=== PATIENT | female | born 1950 | race Caucasian/White ===

== ENCOUNTER 2018-04-19 17:24 | Emergency (ER) | payer OTHER ==
[2018-04-19 17:41] VITALS: BMI 35.1
--- NOTE | 2018-04-19 17:47 | PDOC ---
History of Present Illness - General Chief Complaint: Pain Stated Complaint: PAIN - History of Present Illness Initial Comments: The patient is a 68F w/ a history of HTN who presents for evaluation of sharp L thoracic pain s/p fall down 1/2 of a flight of stairs on Monday (4d ago). She states that she slipped while going up the stairs to her apartment. She then hit her left chest. She denies hitting her head and denies LOC. She states the pain is worse with movement, deep inspiration, and touch. She reports that she did not come to be evaluated earlier 2/2 not wanting to come to the hospital. She has been taking Tylenol for pain w/ some relief. She reports a history of breaking her ribs in the past and states this pain is the same as the pain she had at that time. Denies fevers/chills, recent illness, SHABAZZ, vision changes, chest pain, SOB, N/V/C /D, dysuria, hematuria, or changes in sensation 04/19/18 18:02 Past History - Past Medical History Allergies/Adverse Reactions: Allergies Allergy/AdvReac Type Severity Reaction Status Date / Time No Known Allergies Allergy Unverified 04/19/18 17:41 Home Medications: Ambulatory Orders Lisinopril [Prinivil] 10 mg PO DAILY 04/19/18 - Suicide/Smoking/Psychosocial Hx Smoking History: Never smoked Information on smoking cessation initiated: No Hx Alcohol Use: No Drug/Substance Use Hx: No Review of Systems - Review of Systems Able to Perform ROS?: Yes Comments:: GENERAL/CONSTITUTIONAL: No fever or chills. No weakness HEAD, EYES, EARS, NOSE AND THROAT: No change in vision. No ear pain or discharge. No sore throat CARDIOVASCULAR: No chest pain or shortness of breath RESPIRATORY: Denies cough, hemoptysis GASTROINTESTINAL: No nausea, vomiting, diarrhea or constipation GENITOURINARY: No dysuria, frequency, or change in urination MUSCULOSKELETAL: per HPI SKIN: No rash NEUROLOGIC: No headache, vertigo, loss of consciousness, or change in strength/ sensation ENDOCRINE: No increased thirst. No abnormal weight change HEMATOLOGIC/LYMPHATIC: No anemia, easy bleeding, or history of blood clots ALLERGIC/IMMUNOLOGIC: No hives or skin allergy 04/19/18 17:47 Is the patient limited Tamazight proficient: No *Physical Exam - Vital Signs Last Vital Signs Temp Pulse Resp BP Pulse Ox 98.5 F 93 H 20 149/75 100 04/19/18 17:29 04/19/18 17:29 04/19/18 17:29 04/19/18 17:29 04/19/18 17:29 - Physical Exam Comments: GENERAL: Awake, alert, and fully oriented, in no acute distress HEAD: No signs of trauma, normocephalic, atraumatic; bee on L face infra- orbitally EYES: PERRLA, EOMI, sclera anicteric, conjunctiva clear ENT: Hearing grossly normal, nares patent, oropharynx clear without exudates. Moist mucosa LUNGS: No distress, speaks full sentences, clear to auscultation bilaterally; Cessation of deep inspiration 2/2 pain HEART: Regular rate and rhythm, normal S1 and S2, no murmurs appreciated, peripheral pulses normal and equal bilaterally CHEST: L lateral thoracic TTP over approx rib 8-9 ABDOMEN: Soft, nontender, normoactive bowel sounds. No guarding, no rebound EXTREMITIES : Normal inspection, Normal range of motion, no edema. No clubbing or cyanosis NEUROLOGICAL: Cranial nerves II through XII grossly intact. Normal speech, normal gait, no focal sensorimotor deficits SKIN: Warm, Dry, no abrasions or wounds seen 04/19/18 17:47 Moderate Sedation - Procedure Monitoring Vital Signs: Procedure Monitoring Vital Signs Temperature 98.5 F 04/19/18 17:29 Pulse Rate 93 H 04/19/18 17:29 Respiratory Rate 20 04/19/18 17:29 Blood Pressure 149/75 04/19/18 17:29 O2 Sat by Pulse Oximetry (%) 100 04/19/18 17:29 Medical Decision Making - Medical Decision Making The patient is a 68F w/ a history of HTN who presents for evaluation of 4d of sharp, L thoracic pain s/p mechanical fall from standing ED Course Lidoderm, Ibuprofen, Flexeril CXR, L rib series IS 04/19/18 18:22 Patient pending imaging Plan for re-evaluation s/p imaging Likely D/C w/ PCP f/u and IS 04/19/18 18:[address] chest to further evaluate for underlying pathology given patient's exquisite TTP -CT Chest -CMP, CBC 04/19/18 19:02 I have transferred care of the patient to Dr. Browne and discussed the clinical presentation, work-up and ED course thus far. 04/19/18 19:05 *DC/Admit/Observation/Transfer Diagnosis at time of Disposition: Left-sided chest wall pain - Discharge Dispostion Condition at time of disposition: Stable Decision to Admit order: No - Referrals - Patient Instructions Printed Discharge Instructions: DI for Rib Fracture - Post Discharge Activity
[2018-04-19] MEDS ORDERED: LIDOCAINE 5% TOPICAL PATCH TP ONE (17:48)
[2018-04-19] MEDS ORDERED: LIDOCAINE 5% TOPICAL PATCH ONE (18:00)
[2018-04-19] MEDS ORDERED: CYCLOBENZAPRINE HCL 10 MG TABLET (FP) PO ONE (18:05)
[2018-04-19] MEDS ORDERED: IBUPROFEN 600 MG TABLET (FP) PO ONE ×2 (18:05→18:08)
[2018-04-19] MEDS ORDERED: CYCLOBENZAPRINE HCL 10 MG TABLET (FP) ONE (18:08)
--- NOTE | 2018-04-19 19:04 | PDOC ---
Attending Attestation - HPI HPI: 04/19/18 19:04 The patient is a 68 year old female with a past medical history of HTN here today for evaluation of left sided rib pain. The patient reports that she fell down the stairs on Monday and fell on her side about 4 days ago. She denies loss of consciousness and dizziness both before and after the fall. She reports that her pain is localized to left lateral chest, exacerbated by deep inspiration and palpation. Prior history of rib fx, but unclear which side. She reports taking tylenol with minimal relief. Patient denies headache, lightheadedness. Denies fever, chills. Denies nausea, vomiting, diarrhea, abdominal pain. Allergies: NKA PCP: none reported <Dusty Renner - Last Filed: 04/19/18 19:04> - Resident Resident Name: Power Sterling - ED Attending Attestation I have performed the following: I have examined & evaluated the patient, The case was reviewed & discussed with the resident, I agree w/resident's findings & plan - Physicial Exam PE: 04/19/18 19:33 NAD, well appearing, PERRL, EOMI, MMM, nl conjunctiva, anicteric; neck supple. + left lateral chest wall TTP, no crepitus, but exquisitely tender. lungs clear, RRR, abdomen soft nontender. FISHER x4, no focal neuro deficits. No peripheral edema. normal color for ethnicity, WWP. - Medical Decision Making 04/19/18 19:33 HPI as documented DDx ptx, hemothorax, rib fractures, chest/pulmonary contusion. intra thoracic injury vitals wnl, no hypoxia. analgesia with topical lidocaine/NSAID/flexeril - without much relief. CXR with possible left sided rib fx CT chest to better delineate and eval for distinctively for multiple rib fx, given significant pain and complications such as hemothorax/effusion. no ptx see on cxr. ordered for incentive jim and deep breathing exercises s/o pending reeval dispo per imaging. 04/19/18 19:35 <Kavitha Rodríguez - Last Filed: 04/19/18 19:36>
[2018-04-19 19:49] LABS: HEMATOCRIT 37.9 % (32.4-45.2); HEMOGLOBIN 13.2 GM/dL (10.7-15.3); MCH 29.6 pg (25.7-33.7); MCHC 34.8 g/dl (32.0-36.0); MEAN CELL VOLUME 84.8 fl (80-96); MEAN PLT VOLUME 9.9 fl (7.5-11.1); PLATELET COUNT 282 K/MM3 (134-434); RBC 4.47 M/mm3 (3.60-5.2); WHITE BLOOD COUNT 10.8 K/mm3 (4.0-10.0)
[2018-04-19 20:32] LABS: ALBUMIN 3.9 g/dl (3.4-5.0); ALK PHOS 86 U/L (45-117); ANION GAP 7 MMOL/L (8-16); BILIRUBIN,TOTAL 0.5 mg/dL (0.2-1); BLOOD UREA NITROGEN 10 mg/dL (7-18); CALCIUM 8.3 mg/dL (8.5-10.1); CHLORIDE 103 mmol/L (98-107); CO2 28 mmol/L (21-32); CREATININE 0.7 mg/dL (0.55-1.3); GLUCOSE,RANDOM 131 mg/dL (74-106); POTASSIUM 4.4 mmol/L (3.5-5.1); SGOT/AST 28 U/L (15-37); SGPT/ALT 33 U/L (13-61); SODIUM 138 mmol/L (136-145)
[2018-04-19] MEDS ORDERED: LIDOCAINE PATCH REMOVAL MC SCH (22:00)
--- NOTE | 2018-04-19 23:05 | PDOC ---
*Physical Exam - Vital Signs Last Vital Signs Temp Pulse Resp BP Pulse Ox 98.2 F 102 H 18 147/74 97 04/19/18 20:49 04/19/18 20:49 04/19/18 20:49 04/19/18 20:49 04/19/18 20:49 ED Treatment Course - LABORATORY CBC & Chemistry Diagram: 04/19/18 19:15 04/19/18 19:15 - ADDITIONAL ORDERS Additional order review: Laboratory Results 04/19/18 19:15 Sodium 138 Potassium 4.4 Chloride 103 Carbon Dioxide 28 Anion Gap 7 L BUN 10 Creatinine 0.7 Creat Clearance w eGFR > 60 Random Glucose 131 H Calcium 8.3 L Total Bilirubin 0.5 AST 28 ALT 33 Alkaline Phosphatase 86 Total Protein 7.0 Albumin 3.9 04/19/18 19:15 RBC 4.47 MCV 84.8 MCHC 34.8 RDW 13.0 MPV 9.9 - Medications Given in the ED: ED Medications Discontinued Medications Generic Name Dose Route Start Last Admin Trade Name Freq PRN Reason Stop Dose Admin Cyclobenzaprine HCl 10 mg 04/19/18 18:05 04/19/18 18:12 Flexeril - PO 04/19/18 18:06 10 mg ONCE ONE Administration Ibuprofen 600 mg 04/19/18 18:05 04/19/18 18:12 Motrin - PO 04/19/18 18:06 600 mg ONCE ONE Administration Lidocaine 1 patch 04/19/18 17:48 04/19/18 18:12 Lidoderm Patch - TP 04/19/18 17:49 1 patch ONCE ONE Administration Medical Decision Making - Medical Decision Making 04/20/18 06:28 Pt signed out to me by Dr. Sterling Pt is a 68yo F with PMH of htn presenting to ED with L thoracic pain s/p fall 1/ 2 flight of stairs 4 days ago. Pain is worse with movement, deep inspiration and touch. Tylenol helps with pain relief. Waiting for CT results. CT results negative for fracture. Pt should still use spirometer since pt has pain with inspiration. Pt can continue to take Tylenol as well as ibuprofen which was sent to the pharmacy. Pt can be safely dc home. *DC/Admit/Observation/Transfer Diagnosis at time of Disposition: Left-sided chest wall pain - Discharge Dispostion Disposition: HOME Condition at time of disposition: Good Decision to Admit order: No - Prescriptions Prescriptions: Ibuprofen 600 mg PO TID #15 tablet - Referrals - Patient Instructions Additional Instructions: You were seen here today for left sided pain. The CT scan does not show evidence of fracture. I highly recommend you use the spirometer. This will prevent any infection from happening in the lungs. Please use it a few times per day, the more the better. A prescription has been sent to your pharmacy for ibuprofen. Please take as directed. You can also take Tylenol if needed. Come back to the emergency room if your pain gets worse, you start to have cough , you have fever, you have chest pain or if any new concerning symptom develops. Thank you - Post Discharge Activity
[2018-04-19 23:48] VITALS: BP 122/65; PULSE 89; TEMP 98.5
--- NOTE | 2018-04-20 10:16 | EKG ---
Test Reason : Blood Pressure : / mmHG Vent. Rate : 091 BPM Atrial Rate : 091 BPM P-R Int : 138 ms QRS Dur : 094 ms QT Int : 358 ms P-R-T Axes : 045 013 053 degrees QTc Int : 440 ms NORMAL SINUS RHYTHM POSSIBLE LEFT ATRIAL ENLARGEMENT BORDERLINE ECG NO PREVIOUS ECGS AVAILABLE Confirmed by STEPH MERRILL MD ([id number]) on 04/20/2018 10:16:08 AM Referred By: Confirmed By:STEPH MERRILL MD
== END 2018-04-19 23:48 | disposition home or self-care (01) ==
LOC: JER 17:24
DX: R07.89 Other chest pain (principal); I10 Essential (primary) hypertension; W10.9XXA Fall (on) (from) unspecified stairs and steps, initial encounter; Y93.89 Activity, other specified; Y92.008 Other place in unspecified non-institutional (private) residence as the place of occurrence of the external cause
CPT/HCPCS: 36415; 71046-TC-FY; 71101-TC-LT-FY; 71260-TC; 80053; 85027; 93005; 93010; 99282-25

== ENCOUNTER 2022-03-30 17:40 | Emergency (ER) | payer OTHER ==
[2022-03-30 17:52] VITALS: BMI 35.1
[2022-03-30] MEDS ORDERED: morphine CARPU-JECT 4 MG/1 ML DISP.SYRIN IVPUSH ONE (18:31)
[2022-03-30] MEDS ORDERED: morphine SULFATE 4 MG/ML VIAL ONE (18:37)
[2022-03-30] MEDS ORDERED: LIDOCAINE 1%/EPI 1:100000 (20 ML MULTI DOSE VIAL) IJ ONE (19:26)
[2022-03-30] MEDS ORDERED: LIDOCAINE 1%/EPI 1:100000 (20 ML MULTI DOSE VIAL) ONE (19:32)
[2022-03-30] MEDS ORDERED: DIPHTH,PERTUSS(ACELL),TET 0.5 ML DISP.SYRIN IM ONE ×2 (20:11→21:08)
[2022-03-30 20:36] LABS: BASO % 0.2 % (0-2.0); EOS % 0.4 % (0-4.5); HEMATOCRIT 36.2 % (32.4-45.2); HEMOGLOBIN 11.9 GM/dL (10.7-15.3); LYMPH % 3.7 % (8-40); MCH 27.8 pg (25.7-33.7); MEAN CELL VOLUME 84.2 fl (80-96); MEAN PLT VOLUME 9.4 fl (7.5-11.1); MONO % 4.9 % (3.8-10.2); NEUT % 90.8 % (42.8-82.8); PLATELET COUNT 275 10^3/uL (134-434); RBC 4.29 M/mm3 (3.60-5.2); RDW 13.2 % (11.6-15.6); WHITE BLOOD COUNT 20.6 K/mm3 (4.0-10.0)
[2022-03-30 20:53] LABS: CALCIUM 9.1 mg/dL (8.5-10.1)
[2022-03-30 20:54] LABS: ALBUMIN 3.5 g/dl (3.4-5.0)
[2022-03-30] MEDS ORDERED: POTASSIUM CHLORIDE TABS 20 MEQ TABLET.ER (FP) PO ONE ×2 (20:56→21:11)
[2022-03-30 20:57] LABS: CREATININE 0.7 mg/dL (0.55-1.3)
[2022-03-30 20:59] LABS: BILIRUBIN,TOTAL 0.6 mg/dL (0.2-1); TOT PROT 6.8 g/dl (6.4-8.2)
[2022-03-30 21:29] LABS: ANISOCYTOSIS 2+; MACROCYTOSIS 0
[2022-03-31 01:46] VITALS: BP 105/54; PULSE 103; RESP 16; TEMP 98.7
[2022-03-31] MEDS ORDERED: ACETAMINOPHEN 500 MG TABLET (FP) PO ONE (02:11)
[2022-03-31] MEDS ORDERED: ACETAMINOPHEN 325 MG TABLET (FP) ONE (02:13)
== END 2022-03-31 02:24 | disposition home or self-care (01) ==
LOC: JER 17:40
PROC: 0HQ0XZZ Repair Scalp Skin, External Approach (ICD-10-PCS; principal; 2022-03-30)
PROC: 3E0234Z Introduction of Serum, Toxoid and Vaccine into Muscle, Percutaneous Approach (ICD-10-PCS; 2022-03-30)
PROC: 3E033NZ Introduction of Analgesics, Hypnotics, Sedatives into Peripheral Vein, Percutaneous Approach (ICD-10-PCS; 2022-03-30)
DX: S42.201A Unspecified fracture of upper end of right humerus, initial encounter for closed fracture (principal); S42.202A Unspecified fracture of upper end of left humerus, initial encounter for closed fracture; S01.01XA Laceration without foreign body of scalp, initial encounter; W10.9XXA Fall (on) (from) unspecified stairs and steps, initial encounter
CPT/HCPCS: 0241U-QW; 12002-25; 36415; 70450-TC; 71045-TC-FY; 71260-TC; 72125-TC; 72128-TC; 72131-TC; 72170-TC-FY; 73030-TC-LT-FY; 73030-TC-RT-FY; 73060-TC-LT-FY; 73060-TC-RT-FY; 73090-TC-LT-FY; 73090-TC-RT-FY; 74177-TC; 80053; 85025; 90471; 90715; 96374; 99285-25

== ENCOUNTER 2022-04-08 18:15 | Emergency (ER) | payer OTHER ==
[2022-04-08 18:31] VITALS: BP 197/101; PULSE 97; RESP 18; TEMP 97; BMI 35.5
== END 2022-04-08 20:20 | disposition home or self-care (01) ==
LOC: JERFT 18:15 → JER 18:15 → JERFT 20:20
DX: Z48.02 Encounter for removal of sutures (principal)
CPT/HCPCS: 99281-25

== ENCOUNTER 2023-06-17 14:33 | Emergency (ER) | payer OTHER ==
[2023-06-17 15:01] VITALS: BP 138/88; PULSE 74; RESP 20; TEMP 97.8; BMI 32.5
[2023-06-17] MEDS ORDERED: CEPHALEXIN MONOHYDRATE 500 MG CAPSULE (UD) ONE (16:59)
[2023-06-17] MEDS: CEPHALEXIN MONOHYDRATE 500 MG CAPSULE (UD) PO ONE (17:05)
== END 2023-06-17 17:18 | disposition home or self-care (01) ==
LOC: FER 14:33
PROC: 0HQFXZZ Repair Right Hand Skin, External Approach (ICD-10-PCS; principal; 2023-06-17)
DX: S61.011A Laceration without foreign body of right thumb without damage to nail, initial encounter (principal); W26.0XXA Contact with knife, initial encounter
CPT/HCPCS: 12001-25; 73130-TC-RT-FY; 99283-25

== ENCOUNTER 2023-07-04 16:47 | Emergency (ER) | payer OTHER ==
[2023-07-04 16:58] VITALS: BP 149/77; PULSE 84; RESP 16; TEMP 98; BMI 34.5
== END 2023-07-04 18:13 | disposition home or self-care (01) ==
LOC: FER 16:47
DX: Z48.02 Encounter for removal of sutures (principal)
CPT/HCPCS: 99281-25